=== PATIENT | female | born 1955 | race Caucasian/White ===

== ENCOUNTER 2017-01-16 17:24 | Inpatient (IN) | payer MEDICAID ==
[~2017-01-16] VITALS: Ht 157.5 cm; Wt 63.8 kg
--- NOTE | 2017-01-17 11:44 | HP ---
ADMIT: 01/16/2017 RM/LOC: [facility] MR#: [id number] [address] [address] FRANCIS HAGAN [address] [place] [address] History and Physical SEX: F AGE: 61 : 1955 DATE OF SERVICE: 01/16/2017 CHIEF COMPLAINT AND HISTORY OF PRESENT ILLNESS: Hypoxia, pneumonia. HISTORY OF PRESENT ILLNESS: This is a 61-year-old female, who was transferred from [facility] by primary provider there who discussed with Dr. Fletcher and now being admitted on [facility] basis. The patient herself is aphasic, so she can only verbalize yes/no answers. She has had increase in her routine oxygen needs, which according to history provided by Dr. Espino in the emergency room was 2-5 L, currently requiring high-flow O2 to keep sats at 90% level. She had been [facility] the [facility] with some oral medications and steroids and due to her worsening status, was transferred here. I have tried to reach family members by phone and have been unsuccessful. Nursing staff talked to daughter earlier and indicated that she wanted full code status also on the background history that she was actually at one of the two [facility] in December with GI bleed, but we have no details of that, we will try to get records of that today. 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 I am not certain if that was a separate event or was part of a subarachnoid hemorrhage which she also had in the distant past. She also has a history of some type of chronic lung disease, hypertension, Parkinson's, depression, seizures among others. FAMILY HISTORY: Unable to obtain. REVIEW OF SYSTEMS: From the patient, unable to obtain much meaningful review of systems. She denies any pain anywhere. Denies any nausea, specifically denies any headache. MEDICATIONS: 1. Ferrous sulfate 325 b.i.d. 2. Flexeril 10 mg b.i.d. 3. Keppra 500 mg b.i.d. 4. Potassium 20 mEq b.i.d. 5. Naprosyn 500 mg b.i.d. 6. Pepcid 20 mg b.i.d. 7. Probiotics b.i.d. 8. Senna b.i.d. 9. Sinemet 25/100 t.i.d. 10.Vitamin C 250 mg before meals. 11.Tramadol 50 mg q.i.d. 12.Recently Medrol. 13.Lipitor 40 mg at bedtime. 14.Lexapro 20 mg daily. 15.Megace 10 mL daily. 16.MiraLax once daily. 17.NicoDerm patch daily. 18.Ritalin 10 mg a.m., 5 mg p.m. ADMIT: 01/16/2017 RM/LOC: [facility] MR#: [id number] [address] [address] FRANCIS HAGAN [address] [address] History and Physical SEX: F AGE: 61 : 1955 19.Vitamin D 1000 units daily. 20.Amantadine 100 mg b.i.d. 21.Eliquis 5 mg b.i.d. 22.Catapres 0.1 mg b.i.d. 23.Symbicort 160/4.5, two puffs b.i.d. 24.DuoNeb t.i.d. 25.Various medications on a p.r.n. basis as well. ALLERGIES: LATEX IS LISTED. SOCIAL HISTORY: Chart indicates she is and that she resides in a penitentiary in [place]. I do not know her prior smoking or alcohol status. PHYSICAL EXAMINATION: GENERAL: As noted, she is currently alert, hypoxic on room air. When I pulled the mask off to talk to her yesterday evening, her sats dropped in the low 70s and it took several minutes for her to recover back to 90. Currently, her FiO2 is running about 74% with sats in the low 90s. Currently, her MAP is 83, respiratory rate is slightly labored, she is afebrile, heart rate in the 90-100 range, it is regular. ENT: I did not remove the mask to look in her throat. Mucous membranes appear moist. TMs, no drainage. Nasopharynx, no drainage. Eyes, grossly normal. Pupils equal, sclerae nonicteric. NECK: No tenderness. She has a prior tracheostomy scar. LUNGS: Crackles bilaterally, slightly tachypneic. HEART: Regular rhythm. I do not hear a murmur. ABDOMEN: Soft to palpation. Had a prior gastrostomy. BACK: Limited exam, nontender. NEURO: She has a left hemiplegia and she is aphasic. No other obvious focal neurologic signs. EXTREMITIES: Upper extremities, grossly normal. Lower extremities, no edema. Perfusion is cool to the feet. PSYCH: She is calm. LABORATORY AND X-RAY DATA: Chest x-ray suggests right lower lobe infiltrate and some pulmonary edema. Procalcitonin now x2 is negative. She has persistent high white count of 23,000 with a left shift and hemoglobin of 9.2 with elevated RDW, platelets are adequate. Sodium is little elevated at 150, potassium is 3.5, glucose 120, creatinine 0.7. Lactate is 1.7. Urinalysis, unremarkable. IMPRESSION: 1. Acute right lower lobe pneumonia. 2. Hypoxic respiratory failure. 3. Interstitial pulmonary edema. 4. Hypernatremia. ADMIT: 01/16/2017 RM/LOC: [facility] MR#: [id number] [address] [address] FRANCIS HAGAN [address] [address] History and Physical SEX: F AGE: 61 : 1955 5. Anemia. 6. Leukocytosis. 7. Chronic left hemiplegia and aphasia due to remote cerebrovascular accident. 8. Allegedly, a recent gastrointestinal bleed in [place], we will get the records. 9. Chronic medical conditions as discussed above. PLAN: We started her on broad-spectrum antibiotic therapy. I have consulted Pulmonology to review the case and make further recommendations. So far, she is full code but I have been unable to reach the family directly, we will talk to them when available. Angel Schaefer MD/ leobardo JOB #: [id number] CC: Angel Schaefer, Attending Physician Angel Schaefer, Family Physician
--- NOTE | 2017-01-22 16:06 | CO ---
ADMIT: 01/16/2017 RM/LOC: 301 [facility] MR#: [id number] [address] [address] [place] [address] Consultation SEX: F AGE: 61 : 1955 DATE OF CONSULTATION: 01/17/2017 ATTENDING PHYSICIAN: Angel Schaefer CONSULTING PHYSICIAN: Jim Quijano MD Evaluation regarding this lady's altered mental status, respiratory distress with severe hypoxia and recent GI bleed with left hemiparesis. HISTORY OF PRESENT ILLNESS: This is a very pleasant 61-year-old former smoking lady whom we are asked by Dr. Schaefer to evaluate in intensive care regarding this lady's elevated right hemidiaphragm, altered mental status, rather severe hypoxia requiring Comfort Winston at 7 liters a minute with 70% FiO2 and question is her pneumonia or hypoxia related to previous PE or some other issue, we do not have the actual history from the GI bleed that she had in [place] a few weeks ago, but apparently she has had some altered mental status changes in the care home where she has been at [place] where she came from. According to records, she is sent to the emergency room and Dr. Escoto was asked to evaluate her in the ER. She is really not able to give much of a history, is being nonverbal and we do not have any of the records from the previous CVA subarachnoid hemorrhage. She had been recently admitted to [facility] in [place] a week ago for GI bleed, but we do not have the records from there. I am not sure why she did get sent back there. My understanding is that there may have been fall, sats have been 2 to 5 liters which she normally wears in the care home up to now requiring rather significant desaturations in the 70s on her high flow oxygen. When she arrived, her sats were 84% on 6 liters and she was unable to give much of a history. There was marked elevation to right hemidiaphragm as noted on the chest x-ray with a questionable infiltrate or possible even a foreign body or a tumor with marked elevation to diaphragm. Minimal infiltrate in the left side was noted. PAST MEDICAL HISTORY: Previous DVT, Parkinson, depression, elevated cholesterol, seizures, subarachnoid hemorrhage, tracheotomy, PEG, they all removed in the past. The recent GI bleed as mentioned, immobile state. MEDICATIONS: She is presently on multiple medications from the care home they included: 1. Ferrous sulfate. 2. Flexeril. 3. Keppra. 4. Klor-Con. 5. Naprosyn. 6. Pepcid. 7. Senna. 8. Sinemet. 9. Vitamin C. 10.Tramadol. 11.Medrol tab everyday. ADMIT: 01/16/2017 RM/LOC: 301 [facility] MR#: [id number] [address] [place] [id number] [place] [address] Consultation SEX: F AGE: 61 : 1955 12.Milk of magnesia. 13.MiraLax. 14.Dulcolax. 15.Lipitor. 16.Lexapro. 17.Megace. 18.NicoDerm. 19.Ritalin. 20.Vitamin D. 21.Amantadine. 22.Amoxil. 23.Apixaban. 24.Biofreeze. 25.Catapres. 26.Robitussin. 27.Tylenol. 28.Symbicort. 29.DuoNeb. 30.Eliquis. REVIEW OF SYSTEMS: Unobtainable. PAST MEDICAL HISTORY: As mentioned. ALLERGIES: PLEASE SEE THE NURSING LIST, IS LISTED ONLY LATEX ON RECORDS FROM THE [facility]AIL. SOCIAL HISTORY: She currently lives in care home, has a history of smoking in the past. She had been on some NicoDerm patch as recently. PHYSICAL EXAMINATION: GENERAL: Well-developed, very dry appearing lady with sunken eyes. Previous tracheotomy site is noted in the neck. HEENT: Eyes are round, there is some arcus cornealis. I do not see jaundice, mouth sores. No exudates. Tongue is midline. CHEST: Shows diminished breath sounds on the right side compared to the left side. Few crackles noted in the left chest, otherwise previous tracheotomy site is noted. ABDOMEN: Soft, having tenderness. EXTREMITIES: There was noted to be inability to move the left arm and leg. This time right arm and leg do move appropriately to commands. She is able to mumble some guttural sounds, but they are basically not very coherent. She can answer yes and no questions. VITAL SIGNS: Temperature 98, pulse is 24, blood pressure 111/56, pulse is 115, sat is 85% on high flow 70%. LABORATORY DATA: BNP is 3129. Lactate 1.7. Sodium 150, potassium 3.5, chloride 115, bicarb 24, BUN 18, creatinine 0.7, and procalcitonin 0.23. Troponin 0.02. White count 23,000, hemoglobin 9.1, hematocrit 30, and ADMIT: 01/16/2017 RM/LOC: 301 [facility] MR#: [id number] [address] [place] [id number] [place] [id number] Consultation SEX: F AGE: 61 : 1955 platelets 297. INR 1.2. Blood gas 7.40, pCO2 of 38, PO2 of 55 on 40%. The chest x-ray as mentioned demonstrates elevated hemidiaphragm. EKG shows regular sinus rhythm. No acute changes. IMPRESSION: 1. Acute respiratory failure related to probable pneumonia with elevated hemidiaphragm, questionable foreign body or tumor could be not ruled out. Elevated hemidiaphragm whether this is acute or chronic is unclear. Previous cerebrovascular accident is on the left side, so it is unusual for any nerve injury to be on the right side. 2. Altered mental status, question early sepsis versus her history of seizures in the past. 3. History of incomplete database. 4. Hypoxia, respiratory failure. 5. Paralysis of left arm and leg with nonverbal status and aphasia. 6. Previous tracheotomy and PEG. 7. Elevated sodium and low potassium. 8. Anemia with recent gastrointestinal bleed in [place]. 9. Smoking history with rather severe hypoxia. 10.Prior deep venous thrombosis. 11.Depression. 12.Chronic immobility at the care home in [place]. RECOMMENDATIONS: Continue the vancomycin and Zosyn. CT of the chest would be important to determine if there is a PE, if there is Doppler of lower extremities, elevated hemidiaphragm. We will determine if bronchoscopy could be performed although she is severely hypoxic. At this time, we will have to intubate her in order to do that. I do not think that is a good idea at this time. I will plan to continue the steroids as she had been on in the care home. D5 water for the low-high sodium. Thank you for the opportunity to evaluate and participate in the care. Jim Quijano MD/ leobardo JOB #: [id number] CC: Angel Schaefer, Attending Physician Angel Schaefer, Family Physician
--- NOTE | 2017-01-27 13:53 | ER ---
ADMIT: 01/16/2017 RM/LOC: 301 [facility] MR#: [id number] [address] [address] FRANCIS HAGAN [address] [place] [address] Emergency Room Report SEX: F AGE: 61 : 1955 DATE: 01/16/2017 ADDENDUM: CHIEF COMPLAINT: Hypoxia, increased oxygen requirements. HISTORY OF PRESENT ILLNESS: The patient is a 61-year-old female, sent to us from a residential in [place]. She is not able to provide me any history as she is essentially nonverbal. I believe this is mostly due to her history of previous CVA and subarachnoid hemorrhage. I am unsure if she is having some new mental status changes at this time. I did not get a real thorough report, but it sounds like the patient did have an admission to [facility] in [place] approximately a week ago for a GI bleed. From my understanding, she normally wears between 2 and 5 L of oxygen to keep her sats in the high 80s to low 90s. Apparently, she was in the 70s with that and had to be increased. When she arrived here, her sats were 84% on 6 L nasal cannula. The patient is not able to give me any history at this time. When asked directly if she is having pain or feels short of breath, she nods her head no. REVIEW OF SYSTEMS: Unable to obtain an accurate review of systems. PAST MEDICAL HISTORY: Chart review shows she has history of hypertension, COPD, DVT, Parkinson's, depression, high cholesterol, seizure history, subarachnoid bleed, CVA with subsequent left-sided weakness, and a previous GI bleed. MEDICATIONS: The patient is on Eliquis and looks like she has also been on some antibiotics recently taking both Levaquin and amoxicillin. She has also been on steroids recently. ALLERGIES: SEE NURSE'S NOTE. SOCIAL HISTORY: The patient currently lives in a residential, has a history of smoking but quit many years ago. PHYSICAL EXAMINATION: See T-sheet for complete physical exam. The patient does have some unilateral weakness which is apparently not new for her. She also has decreased breath sounds at bilateral bases and some crackles on the left side of her lung. She does not appear in any respiratory distress. LABORATORY AND X-RAY DATA: White count of 23.4, hemoglobin 9.1, platelets 451. Chemistries were unremarkable other than a sodium of 150. CK is 54, CK- MB is 2.2, troponin is 0.02, INR is 1.23, procalcitonin is 0.23, lactic acid 1.7. BNP is 3129. Urinalysis is normal. Chest x-ray showed findings consistent with CHF. Does appear to have a right pleural effusion and could have an opacity/infiltrate in the right base also. EKG shows sinus rhythm, rate of 97. ADMIT: 01/16/2017 RM/LOC: 301 [facility] MR#: [id number] [address] [place] [id number] FRANCIS HAGAN [address] [address] Emergency Room Report SEX: F AGE: 61 : 1955 EMERGENCY DEPARTMENT COURSE: When the patient arrived, she was seen by Dr. Fletcher and sepsis routine was started. She was handed out to me for final disposition and some laboratory results pending. I did try to taper the patient down in the ER on her oxygen requirements while she was here, but I was unable to get her any lower than being on 10 L simple mask to keep her sats in the high 80s to low 90s. As she does not have a doctor in [place], I spoke to Dr. Schaefer, who will be admitting the patient to his service. We did discuss giving the patient Lasix, but because her blood pressures are in the 110s over 50s and 60s, we will hold off on Lasix while she is in the ER. She did get a dose of IV Zosyn while in the Emergency Department for possible pneumonia. The patient is admitted with a diagnosis of: 1. Possible pneumonia. 2. Hypoxia. 3. Congestive heart failure. Jevon Espino MD/ leobardo JOB #: [id number] CC: Angel Schaefer MD, Attending Physician Angel Schaefer MD, Family Physician
--- NOTE | 2017-01-29 10:21 | DS ---
ADMIT: 01/16/2017 RM/LOC: 301 [facility] MR#: [id number] [address] [address] [place] [address] General Discharge Summary SEX: F AGE: 61 : 1955 ADMISSION DATE: 01/16/2017 DISCHARGE DATE: 01/21/2017 DATE OF : 01/21/2017 FINAL DIAGNOSES: 1. Acute right lower lobe pneumonia. 2. Hypoxic respiratory failure. 3. Suspected endobronchial lesion on the right. 4. Pulmonary edema. 5. Hypernatremia. 6. Anemia secondary to recent gastrointestinal blood loss. 7. Deep venous thrombosis, left lower extremity. 8. Late affects of prior cerebrovascular accident, left hemiplegia and aphasia. 9. Recent lower gastrointestinal bleed treated at an outside facility. NARRATIVE: Francis Pena was a [facility] admit from [place], who presented seriously ill with hypoxia and clinical radiographic evidence of pneumonia. [facility] and failed outpatient treatment for pneumonia. She had multiple morbidities including those listed above plus history of some type of chronic lung disease. She is a former smoker, hypertension, Parkinson's, depression, seizure disorder, and most notably several years ago she had a subarachnoid hemorrhage with resultant left hemiplegia and aphasia. She presented acutely hypoxic, though she was alert enough to answer questions appropriately in yes-no fashion as she was limited by her aphasia. She was not initially hypotensive or tachycardic. She was tachypneic. She had bilateral crackles. Cardiac rhythm was regular. Her abdomen was soft. She had left hemiplegia and the aphasia. She was described as calm. Chest x-rays revealed a right lower lobe infiltrate, pulmonary interstitial edema. Procalcitonin was negative. Her white count was 23,000 with left shift, hemoglobin 9.2, sodium elevated at 150, potassium 3.5, glucose 120, creatinine 0.7, lactate 1.7. Urinalysis unremarkable. Subsequent CT scan of the chest to rule out pulmonary embolus. It did show near complete occlusion of the right middle lobe of the right bronchus below the level of the takeoff of right middle lobe. Concern was that she could have an endobronchial lesion there. Serial chest x-rays are noted in the chart, will not be reiterated here. Her blood culture showed no growth. The patient was admitted to acute care. She was started initially on IV vancomycin and IV Zosyn, high-flow oxygen, DuoNeb. She was initially full code status but later changed and wanted to be made DNR/DNI. Dr. Quijano, merchandise executive, was consulted, and I refer you to his consultation in the electronic record. He did not feel she was stable for full bone bronchoscopy at this point. I did order steroids as well. The patient is critically ill throughout her hospitalization. As noted, she did not want to be intubated. ADMIT: 01/16/2017 RM/LOC: 301 [facility] MR#: [id number] [address] [place] [id number] [place] [address] General Discharge Summary SEX: F AGE: 61 : 1955 She was transitioned up to BiPAP, fairly high pressures. Attempts were made to diurese her with Lasix for interstitial edema. She was found have a DVT in the left leg and was started on some heparin there. Eventually, that was stopped due to concern she could have recurrent lower GI bleed. She already had an IVC filter in place. Dr. Quijano initially had conversations with the patient and with family and her wishes for DNR/DNI were honored, but family did wish other treatments to be kept in place. Consideration was given the possibility of comfort care, but before that final decision was made, the patient early the morning of January 21. Cause of was her severe pneumonia and respiratory failure. Angel Schaefer MD/ leobardo JOB #: [id number] CC: Angel Schaefer MD, Attending Physician Angel Schaefer MD, Family Physician Maxim Soto MD
== END 2017-01-21 01:30 | disposition expired | DRG 189 ==
LOC: ER 17:24 → 3ICU 21:10
PROVIDERS: ADMIT Family Medicine
DX: J96.01 Acute respiratory failure with hypoxia (principal); G93.41 Metabolic encephalopathy; J18.9 Pneumonia, unspecified organism; I11.0 Hypertensive heart disease with heart failure; E87.0 Hyperosmolality and hypernatremia; I50.9 Heart failure, unspecified; G20 Parkinson's disease; I82.402 Acute embolism and thrombosis of unspecified deep veins of left lower extremity; J44.0 Chronic obstructive pulmonary disease with (acute) lower respiratory infection; I69.354 Hemiplegia and hemiparesis following cerebral infarction affecting left non-dominant side; I69.320 Aphasia following cerebral infarction; D64.9 Anemia, unspecified; F32.9 Major depressive disorder, single episode, unspecified; G40.909 Epilepsy, unspecified, not intractable, without status epilepticus; Z79.01 Long term (current) use of anticoagulants; Z99.81 Dependence on supplemental oxygen; Z87.891 Personal history of nicotine dependence; Z86.718 Personal history of other venous thrombosis and embolism; Z87.11 Personal history of peptic ulcer disease; Z66 Do not resuscitate